=== PATIENT | female | born 1985 | race African-American/Black ===

== ENCOUNTER 2019-09-23 16:37 | Emergency (ER) | payer OTHER ==
--- NOTE | 2019-09-23 17:12 | PDOC ---
Rapid Medical Evaluation Chief Complaint: Pain Time Seen by Provider: 09/23/19 17:10 Medical Evaluation: Allergies Allergy/AdvReac Type Severity Reaction Status Date / Time No Known Allergies Allergy Verified 09/23/19 17:09 09/23/19 17:10 I have performed a brief in-person evaluation of this patient. The patient presents with a chief complaint of: 1 week h/o back pains, urinary frequency and dysuria with 3 days h/o right pelvic pain and nausea. Denies vomiting, fever, chills Pertinent physical exam findings: afebrile I have ordered the following:UA, HGC,UCX. cbc, cmp The patient will proceed to the ED for further evaluation. Discharge Disposition - Diagnosis Abdominal pain - Discharge Dispostion Condition at time of disposition: Stable - Referrals - Patient Instructions - Post Discharge Activity
[2019-09-23 17:15] VITALS: BP 167/95; PULSE 94; TEMP 98.5; BMI 49.9
[2019-09-23 18:03] LABS: URINE APPEARANCE CLEAR; URINE BILIRUBIN NEGATIVE (NEGATIVE); URINE COLOR YELLOW; URINE GLUCOSE (UA) NEGATIVE (NEGATIVE); URINE KETONE NEGATIVE (NEGATIVE); URINE LEUK ESTERASE NEGATIVE (NEGATIVE); URINE NITRITE NEGATIVE (NEGATIVE); URINE PROTEIN NEGATIVE (NEGATIVE); URINE UROBILINOGEN 0.2 mg/dL (0.2-1.0)
[2019-09-23 18:06] LABS: BASO % 0.4 % (0-2.0); EOS % 1.5 % (0-4.5); HEMATOCRIT 38.9 % (32.4-45.2); HEMOGLOBIN 12.6 GM/dL (10.7-15.3); LYMPH % 34.5 % (8-40); MCH 30.6 pg (25.7-33.7); MCHC 32.5 g/dl (32.0-36.0); MEAN CELL VOLUME 94.1 fl (80-96); MONO % 7.5 % (3.8-10.2); NEUT % 56.1 % (42.8-82.8); PLATELET COUNT 227 K/MM3 (134-434); RBC 4.14 M/mm3 (3.60-5.2); RDW 12.9 % (11.6-15.6); WHITE BLOOD COUNT 8.6 K/mm3 (4.0-10.0)
[2019-09-23] MEDS ORDERED: ACETAMINOPHEN 325 MG TABLET (FP) PO ONE (18:09)
--- NOTE | 2019-09-23 18:23 | PDOC ---
History of Present Illness - General Chief Complaint: Pain Stated Complaint: ABD PAIN Time Seen by Provider: 09/23/19 17:10 History Source: Patient Exam Limitations: No Limitations Past History - Past Medical History Allergies/Adverse Reactions: Allergies Allergy/AdvReac Type Severity Reaction Status Date / Time No Known Allergies Allergy Verified 09/23/19 17:09 - Psycho Social/Smoking Cessation Hx Smoking History: Never smoked Information on smoking cessation initiated: No Hx Alcohol Use: No Drug/Substance Use Hx: No *Physical Exam - Vital Signs Last Vital Signs Temp Pulse Resp BP Pulse Ox 98.5 F 94 H 16 167/95 100 09/23/19 17:09 09/23/19 17:09 09/23/19 17:09 09/23/19 17:09 09/23/19 17:09 - Physical Exam General Appearance: No: Apparent Distress Respiratory/Chest: positive: Lungs Clear, Normal Breath Sounds. negative: Respiratory Distress Cardiovascular: positive: Regular Rhythm, Regular Rate, S1, S2. negative: Murmur Female Pelvic Exam: negative: adnexal tenderness Gastrointestinal/Abdominal: positive: Tender (along RLQ), Soft, Guarding (along RLQ). negative: Distended, Rebound Musculoskeletal: negative: CVA Tenderness Integumentary: positive: Normal Color Neurologic: positive: Alert ED Treatment Course - LABORATORY CBC & Chemistry Diagram: 09/23/19 17:23 09/23/19 17:23 - ADDITIONAL ORDERS Additional order review: Laboratory Results 09/23/19 17:23 Urine Color Yellow Urine Appearance Clear Urine pH 7.0 Ur Specific [place] 1.021 Urine Protein Negative Urine Glucose (UA) Negative Urine Ketones Negative Urine Blood Negative Urine Nitrite Negative Urine Bilirubin Negative Urine Urobilinogen 0.2 Ur Leukocyte Esterase Negative 09/23/19 17:23 RBC 4.14 MCV 94.1 MCHC 32.5 RDW 12.9 MPV 11.0 Neutrophils % 56.1 Lymphocytes % 34.5 Monocytes % 7.5 Eosinophils % 1.5 Basophils % 0.4 - RADIOLOGY Radiology Studies Ordered: Category Date Time Status ABDOMEN & PELVIS CT WITH CONTR [CT] Stat CT Scan 09/23/19 18:09 Ordered Medical Decision Making - Medical Decision Making 34 y/o F with no sig pmh presents with RLQ pain radiating to back x 5 days. Saw her PCP yesterday who told her it was possibly gallstones and advised her to come in for fasting blood work. However, patient was not happy with that answer. +nausea. Also with increased urinary frequency x 1 week. Denies fever, URI sxs, sob, cp, vomiting, diarrhea, dysuria, hematuria, unusual vaginal discharge. LNMP 09/15. Has not been sexually active for 4-5 months. Consider appendicitis CBC, UA unremarkable CMP, UCG still pending Plan: CT A/P 09/23/19 18:21 Rest of labs unremarkable CT A/P negative Stable for dc 09/23/19 19:24 Discharge - Discharge Information Problems reviewed: Yes Clinical Impression/Diagnosis: Right lower quadrant abdominal pain Condition: Stable Disposition: HOME - Admission No - Additional Discharge Information Prescription Drug Monitoring Program (I-STOP) results: I-STOP not reviewed - Follow up/Referral Referrals: Derek Quinn MD [Primary Care Provider] - 2 Days - Patient Discharge Instructions Patient Printed Discharge Instructions: DI for Abdominal Pain-Adult Additional Instructions: Thank you for choosing [facility]. It was a pleasure taking care of you. Your CT scan of abdomen/pelvis was unremarkable Follow-up with your doctor in 2 days Return to the Emergency Department if your symptoms worsen or persist or have other concerning symptoms. - Post Discharge Activity Work/Back to School Note: Back to Work
[2019-09-23] MEDS ORDERED: ACETAMINOPHEN 325 MG TABLET (FP) ONE (18:33)
[2019-09-23 18:34] LABS: BILIRUBIN,TOTAL 0.2 mg/dL (0.2-1); BLOOD UREA NITROGEN 14.5 mg/dL (7-18); CALCIUM 8.9 mg/dL (8.5-10.1); CREATININE 0.7 mg/dL (0.55-1.3); POTASSIUM 4.1 mmol/L (3.5-5.1); TOT PROT 7.8 g/dl (6.4-8.2)
[2019-09-23] MEDS ORDERED: KETOROLAC TROMETHAMINE 30 MG/1 ML VIAL IVPUSH ONE (19:24)
[2019-09-23] MEDS ORDERED: KETOROLAC TROMETHAMINE 30 MG/1 ML VIAL ONE (19:30)
== END 2019-09-23 21:22 | disposition home or self-care (01) ==
LOC: JER 16:37
DX: R10.31 Right lower quadrant pain (principal)
CPT/HCPCS: 36415; 74177-TC; 80053; 81003; 84703; 85025; 87086; 99282-25; Q9967